=== PATIENT | male | born 1990 | race Caucasian/White ===

== ENCOUNTER 2023-07-20 12:00 | Emergency (ER) | payer MEDICAID ==
[~2023-07-20] VITALS: Ht 172.7 cm; Wt 111.1 kg
[2023-07-20 12:25] VITALS: BP_SYST 144; PULSE 89; RESP 19; TEMP 98.7; O2SAT 97
[2023-07-20 13:40] VITALS: BP_SYST 144; PULSE 89; RESP 19; TEMP 98.7; O2SAT 97
[2023-07-20] MEDS: IBUPROFEN 800 MG TABLET PO ONE (14:17)
[2023-07-20] MEDS ORDERED: DICL50TA9 PO (14:28)
[2023-07-20] MEDS: HYDROcodone/ACETAMIN 5-325 MG TAB (NORCO/ VICODIN) PO ONE (14:34)
== END 2023-07-20 14:42 | disposition home or self-care (01) ==
LOC: SED 12:00
DX: M54.16 Radiculopathy, lumbar region (principal)
CPT/HCPCS: 72100; 99283